=== PATIENT | female | born 1980 | race Caucasian/White ===

== ENCOUNTER 2016-11-06 15:53 | Emergency (ER) | payer OTHER ==
[2017-01-25] MEDS ORDERED: SUBOXONE 8 MG-1 EACH SL (08:49)
== END 2016-11-06 17:55 | disposition home or self-care (01) ==
LOC: ER1 15:53
DX: J11.1 Influenza due to unidentified influenza virus with other respiratory manifestations (principal); F17.210 Nicotine dependence, cigarettes, uncomplicated
CPT/HCPCS: 99283

== ENCOUNTER 2017-01-04 08:59 | Emergency (ER) | payer OTHER ==
[~2017-01-04] VITALS: Ht 162.6 cm; Wt 56.7 kg
[2017-01-04 09:43] LABS: HEMOGLOBIN 7.5 gm/dl (12.3-15.3); WHITE BLOOD COUNT 10.7 K/UL (4.5-11.0)
[2017-01-04 10:01] LABS: BUN/CREATININE RATIO 20 (0-10)
[2017-01-25] MEDS ORDERED: SUBOXONE 8 MG-1 EACH SL (08:49)
== END 2017-01-04 14:15 | disposition home or self-care (01) ==
LOC: ER1 08:59
PROVIDERS: Emergency Medicine
DX: L02.414 Cutaneous abscess of left upper limb (principal); L03.124 Acute lymphangitis of left upper limb; F19.10 Other psychoactive substance abuse, uncomplicated; F17.200 Nicotine dependence, unspecified, uncomplicated
CPT/HCPCS: 36415; 80053; 85025; 85610; 85730; 86140; 87040; 87077; 87186; 96374; 99283; J3370; J7030; J7070

== ENCOUNTER 2021-01-07 10:08 | Emergency (ER) | payer OTHER ==
[~2021-01-07 10:08] MED LIST: AMOXICILLIN500 M1 PO; DOXYCYCLINE HY100 M2 PO; FLONASE 0.05% N16 GM; MEDROL4 MG PO; ROBITUSSIN AC480 ML PO; SUBOXONE 8 MG-1 EACH SL
[2021-01-07 11:23] LABS: RED BLOOD COUNT 4.47 M/UL (4.00-5.10); WHITE BLOOD COUNT 8.6 K/UL (4.5-11.0)
[2021-01-07 11:43] LABS: BUN/CREATININE RATIO 13 (0-10)
[2021-01-07] MEDS ORDERED: OMNICEF 300 MG300 MG PO (18:54)
== END 2021-01-07 19:05 | disposition home or self-care (01) ==
LOC: ER1 10:08
PROVIDERS: Emergency Medicine
DX: R04.2 Hemoptysis (principal); R00.1 Bradycardia, unspecified; Z87.891 Personal history of nicotine dependence; Z20.822 Contact with and (suspected) exposure to COVID-19
CPT/HCPCS: 0240U; 71045; 80053; 81001; 82550; 82553; 83605; 83690; 84484; 84703; 85025; 85379; 85610; 85730; 93005; 99284; Q9967